=== PATIENT | male | born 1995 | race Caucasian/White ===

== ENCOUNTER → 2017-04-21 20:57 | Emergency (ER) | payer OTHER ==
[~2017-04-21 20:57] MED LIST: Cyclobenzaprine TAB* 10 MG PO ONE; Dexamethasone TAB* 4 MG PO ONE; Ketorolac INJ* 60 MG/2 ML VIAL IM ONE
[2017-04-21 21:03] VITALS: BP 146/56
--- NOTE | 2017-04-21 22:03 | RAD ---
INDICATION: Sacrococcygeal injury. COMPARISON: There are no prior studies available for comparison. TECHNIQUE: 4 views of the sacrococcygeal spine were obtained. FINDINGS: The vertebra are in normal alignment. No fracture is seen. IMPRESSION: NO EVIDENCE OF FRACTURE IF THE PATIENT'S SYMPTOMS PERSIST RECOMMEND FOLLOW UP IMAGING.
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
== END | disposition home or self-care (01) ==
LOC: ED 20:57
DX: M54.5 Low back pain (principal)
CPT/HCPCS: 72220; 96372; 99282; A9270-GY; J1885; J8540